=== PATIENT | male | born 1965 | race Caucasian/White ===

== ENCOUNTER 2023-06-25 14:14 | Observation (INO) ==
[2023-06-25] MEDS ORDERED: SODIUM CHLORIDE 0.9% 1000ML 1,000 ML IV ONE (14:35)
--- NOTE | 2023-06-25 14:35 | ED Triage Note ---
Date of Service June 25, 2023 History of Present Illness This patient was briefly evaluated while in triage. An abbreviated physical exam was performed. This patient is a 57-year-old Male who presents to the ED for evaluation of "so I got an infected tooth. I couldn't get ahold of anybody so here I am." Pt. states he was at Urgent Care yesterday. Rx PCN x10 days. Pt. was seen by dentist today for "emergency root canal". Had I&D, root canal, and was doing okay. Got home this afternoon and was having increasing pain. States took an ibuprofen, was having body shaking. Called dentist and referred to the ED for further evaluation. Pt. states shaking resolved upon arrival to the ED. Physical Exam VITALS: Vitals are noted on the nurse's note and reviewed by myself. GENERAL: This is a 57 year old male, in no acute distress, nondiaphoretic, well-developed well-nourished. SKIN: Left sided facial swelling. HEAD: Normocephalic atraumatic. EYES: Conjunctivae without injection, sclerae without icterus. NECK: No JVD. LUNGS: No retractions or accessory muscle use. MUSCULOSKELETAL: Normal gait. NEURO: Patient was alert and oriented to person place and time. No focal neurological deficits. Initial orders for labs and / or imaging were placed and patient was placed in the waiting area until a bed is available. Please see further documentation for the full ED course. MDM / Impression Impression Impression: Dental infection
[2023-06-25] MEDS ORDERED: ACETAMINOPHEN 500 MG TAB PO STA (14:36)
[2023-06-25 16:00] LABS: Hematocrit (blood only) 39.5 % (42.0-52.0); Hemoglobin 13.8 g/dl (14.0-18.0); Mean Corpuscular Hemoglobin 31.6 pg (25.0-34.0); Mean Corpuscular Hgb Conc 34.9 g/dL (32.0-36.0); Mean Corpuscular Volume 90.4 fL (80.0-100.0); Platelet Count 176 K/uL (130-400); RDW Coefficient of Variation 11.9 % (11.5-14.5); RDW Standard Deviation 39.8 fL (36.4-46.3); Red Blood Count 4.37 M/uL (4.70-6.10); White Blood Count 13.01 K/ul (4.8-10.8)
[2023-06-25 16:23] LABS: Albumin Globulin Ratio 1.3 (0.9-2); Albumin Level 4.2 gm/dl (3.4-5.0); BUN Creatinine Ratio 13.3 (10-20); Basophils # (auto) 0.04 K/uL (0.00-0.20); Basophils % (auto) 0.3 %; Bilirubin,Total 0.7 mg/dl (0.2-1.0); C Reactive Protein 8.44 mg/dl (0-0.5); Calcium 9.2 mg/dl (8.6-10.3); Creatinine Clr Calc Pharmacy 95.8 ml/min; Est GFR (Non-African American) 95.8 ml/min; Globulin 3.3 gm/dl (2.5-4.0); Immature Granulocytes # (auto) 0.05 K/uL (0.01-0.20); Immature Granulocytes % (auto) 0.4 %; Lymphocytes # (auto) 0.31 K/uL (1.20-3.40); Lymphocytes % (auto) 2.4 %; Monocytes # (auto) 0.53 K/uL (0.11-0.59); Monocytes % (auto) 4.1 %; Neutrophils # (auto) 12.08 K/uL (1.40-6.50); Neutrophils % (auto) 92.8 %; Potassium 3.6 mmol/L (3.5-5.1); Total Protein 7.5 gm/dl (6.0-8.3)
[2023-06-25 16:30] LABS: INR 1.1 (0.9-1.1); Partial Thromboplastin Ratio 0.8; Partial Thromboplastin Time 23.9 Seconds (21.0-31.0); Prothrombin Time 11.9 Seconds (9.0-12.0)
[2023-06-25] MEDS ORDERED: OPTIRAY 320 100ml IV ONE (17:15)
[2023-06-25] MEDS ORDERED: ACETAMINOPHEN 500 MG TAB ONE (17:22)
--- NOTE | 2023-06-25 17:41 | CT Scan Report ---
CT soft tissue neck w con CLINICAL HISTORY: Left facial swelling Technique: Axial CT images of the soft tissues of the neck were obtained following intravenous admini stration of 100 cc of Omnipaque 300. Automated dose lowering techniques and/or adjustment according t o patient size were utilized for this exam. Comparison: Soft tissue swelling and subcutaneous emphysema is seen in the left perimandibular soft t issues. Findings: Soft tissue swelling and subcutaneous emphysema are seen in the left mandibular greater than maxillar y soft tissues. The oropharynx, hypopharynx, larynx, and trachea are patent. Subcentimeter left subma ndibular and cervical nodes are seen. The parotid glands, submandibular glands, and thyroid gland are unremarkable. Imaged portions of the brain parenchyma are unremarkable. The paranasal sinuses and mastoid air cell s are normal in appearance. Impression: Soft tissue swelling and subcutaneous emphysema are seen about the left mandible concerning for infec tious process such as developing abscess. No definite underlying bony erosion is seen. ACT 112: Negative or not required by law. Electronically signed by: John Rivera M.D. 06/25/2023 5:39 PM
[2023-06-25] MEDS ORDERED: AMPICILLIN/SULBACTAM SOD 3,000 MG in 0.9 % SODIUM CHLORIDE 100 ML IV STA (18:50)
--- NOTE | 2023-06-25 20:03 | History & Physical Report ---
Date of Service June 25, 2023 Assessment & Plan (1) Dental infection: Plan: 57 yr old male with evidence of dental infection started on iv unasyn . Plan is to provide 24 hours of antibiotics and once improvement seen transition to po antibioitcs Vitals as protocol ACtivity as tolerated Diet soft diet no need for dvt prophylaxis Liquid diet and upgrade to soft diet as tolerated oral maxilofacial surgery consult Patient is a full code. History of Present Illness Chief Complaint: severe left tooth infection with swelling and pain Primary Care Provider: NO PCP 57 year old male with no past medical hx came in for severe left tooth pain and swelling . He had a recent root canal and developed pain secondary to that . he was started on antibiotics and had to see another dentist today and had root canal repair done today. Post proceedure he felt severe pain and swelling in the left jaw and because the pain was excruciating , he came to the er for evaluation . In the er he was evaluated and started on iv antibiotics . at time of evaluation his pain had marginally improved. Allergies Allergy/AdvReac Type Severity Reaction Status Date / Time No Known Allergies Allergy Unverified 10/20/14 11:37 Home Medications Medication Instructions Recorded Confirmed Type No Known Home Medications 06/25/23 06/25/23 History Past Med/Surg History Social History Smoking Status: Never smoker Feels Safe at Home: Yes Review of Systems Review of Systems: Reviewed all systems as noted in H/P , rest reviewed as negative Physical Exam Physical Exam: HEENT:No JVD ,left tooth pain and swelling + CV: S1/S2+ , no murmurs Resp: Air entry present bilaterally.no crackles, no wheeze . GI: Abdomen soft non tender . Musculoskeletal: examined for joint tenderness. Skin: no rashes Psych: Normal affect Neuro: Patient is awake alert not in distress , No focal neuro deficits noted Ext: no edema. Results & Data Results & Data Vital Signs (Past 12 Hours) Vital Signs Temp Pulse Pulse Resp BP BP Pulse Ox 06/25/23 19:00 69 18 120/82 98 06/25/23 17:07 06/25/23 17:07 99 H 18 127/73 97 06/25/23 14:33 38.5 C H 119 H 20 131/76 95 O2 Del Method 06/25/23 19:00 Room Air 06/25/23 17:07 Room Air 06/25/23 17:07 Room Air 06/25/23 14:33 Room Air Laboratory Results Abnormal Labs 06/25/23 06/25/23 15:39 15:39 WBC 13.01 H RBC 4.37 L Hgb 13.8 L Hct 39.5 L MPV 9.0 L Neut # (Auto) 12.08 H Lymph # (Auto) 0.31 L Glucose 104 H C-Reactive Protein 8.44 H Diagnostic Findings Laboratory Results WBC 13.01 K/ul (4.8-10.8) H 06/25/23 15:39 RBC 4.37 M/uL (4.70-6.10) L 06/25/23 15:39 Hgb 13.8 g/dl (14.0-18.0) L 06/25/23 15:39 Hct 39.5 % (42.0-52.0) L 06/25/23 15:39 MCV 90.4 fL (80.0-100.0) 06/25/23 15:39 MCH 31.6 pg (25.0-34.0) 06/25/23 15:39 MCHC 34.9 g/dL (32.0-36.0) 06/25/23 15:39 RDW Std Deviation 39.8 fL (36.4-46.3) 06/25/23 15:39 RDW Coeff of Aryan 11.9 % (11.5-14.5) 06/25/23 15:39 Plt Count 176 K/uL (130-400) 06/25/23 15:39 MPV 9.0 fL (9.4-12.4) L 06/25/23 15:39 Immature Gran % (Auto) 0.4 % 06/25/23 15:39 Neut % (Auto) 92.8 % 06/25/23 15:39 Lymph % (Auto) 2.4 % 06/25/23 15:39 Whitfield % (Auto) 4.1 % 06/25/23 15:39 Eos % (Auto) 0.0 % 06/25/23 15:39 Baso % (Auto) 0.3 % 06/25/23 15:39 Neut # (Auto) 12.08 K/uL (1.40-6.50) H 06/25/23 15:39 Lymph # (Auto) 0.31 K/uL (1.20-3.40) L 06/25/23 15:39 Whitfield # (Auto) 0.53 K/uL (0.11-0.59) 06/25/23 15:39 Eos # (Auto) 0.00 K/uL (0.00-0.50) 06/25/23 15:39 Baso # (Auto) 0.04 K/uL (0.00-0.20) 06/25/23 15:39 Immature Gran # (Auto) 0.05 K/uL (0.01-0.20) 06/25/23 15:39 PT 11.9 Seconds (9.0-12.0) 06/25/23 15:39 INR 1.1 (0.9-1.1) 06/25/23 15:39 APTT 23.9 Seconds (21.0-31.0) 06/25/23 15:39 PTT Ratio 0.8 06/25/23 15:39 Sodium 137 mmol/L (136-145) 06/25/23 15:39 Potassium 3.6 mmol/L (3.5-5.1) 06/25/23 15:39 Chloride 102 mmol/L (98-107) 06/25/23 15:39 Carbon Dioxide 26 mmol/L (21-32) 06/25/23 15:39 Anion Gap 9 (3-11) 06/25/23 15:39 BUN 12 mg/dl (6-23) 06/25/23 15:39 Creatinine 0.90 mg/dl (0.6-1.4) 06/25/23 15:39 Est Cr Clr Drug Dosing 95.8 ml/min 06/25/23 15:39 Est GFR ( Amer) 111.0 ml/min 06/25/23 15:39 Est GFR (Non-Af Amer) 95.8 ml/min 06/25/23 15:39 BUN/Creatinine Ratio 13.3 (10-20) 06/25/23 15:39 Glucose 104 mg/dl (70-99(Fasting)) H 06/25/23 15:39 Lactate 1.1 mmol/L (0.4-2.0) 06/25/23 15:39 Calcium 9.2 mg/dl (8.6-10.3) 06/25/23 15:39 Total Bilirubin 0.7 mg/dl (0.2-1.0) 06/25/23 15:39 AST 25 U/L (13-39) 06/25/23 15:39 ALT 18 U/L (7-52) 06/25/23 15:39 Alkaline Phosphatase 57 U/L (34-104) 06/25/23 15:39 C-Reactive Protein 8.44 mg/dl (0-0.5) H 06/25/23 15:39 Total Protein 7.5 gm/dl (6.0-8.3) 06/25/23 15:39 Albumin 4.2 gm/dl (3.4-5.0) 06/25/23 15:39 Globulin 3.3 gm/dl (2.5-4.0) 06/25/23 15:39 Albumin/Globulin Ratio 1.3 (0.9-2) 06/25/23 15:39 Procalcitonin 0.30 ng/ml (0-0.5) 06/25/23 15:39 Impressions Soft Tissue Neck CT 06/25/23 14:35 CT soft tissue neck w con CLINICAL HISTORY: Left facial swelling Technique: Axial CT images of the soft tissues of the neck were obtained following intravenous administration of 100 cc of Omnipaque 300. Automated dose lowering techniques and/or adjustment according to patient size were utilized for this exam. Comparison: Soft tissue swelling and subcutaneous emphysema is seen in the left perimandibular soft tissues. Findings: Soft tissue swelling and subcutaneous emphysema are seen in the left mandibular greater than maxillary soft tissues. The oropharynx, hypopharynx, larynx, and trachea are patent. Subcentimeter left submandibular and cervical nodes are seen. The parotid glands, submandibular glands, and thyroid gland are unremarkable. Imaged portions of the brain parenchyma are unremarkable. The paranasal sinuses and mastoid air cells are normal in appearance. Impression: Soft tissue swelling and subcutaneous emphysema are seen about the left mandible concerning for infectious process such as developing abscess. No definite underlying bony erosion is seen. ACT 112: Negative or not required by law. Electronically signed by: John Rivera M.D. 06/25/2023 5:39 PM Code Status & VTE Plan Code Status patient is a full code
[2023-06-25] MEDS ORDERED: ACETAMINOPHEN 325 MG TAB PO PRN (21:32)
[2023-06-25] MEDS ORDERED: oxyCODONE/ACETAMINOPHEN 5mg/325mg TAB PO PRN (21:32)
--- NOTE | 2023-06-25 21:34 | Oral/Maxillofacial Consult ---
Date of Consultation June 25, 2023 History of Present Illness Attending Physician: Donnell Patel MD History of Present Illness Oral Maxillofacial Surgery Exam DRAFT Present Complaint: this patient is a 57-year-old Male who presents to the ED for evaluation of "so I got an infected tooth. I couldn't get ahold of anybody so here I am." Pt. states he was at Urgent Care yesterday. Rx PCN x10 days. Pt. was seen by dentist today for "emergency root canal". Had I&D, root canal, and was doing okay. Got home this afternoon and was having increasing pain. States took an ibuprofen, w as having body shaking. Called dentist and referred to the ED for further evaluation. Pt. states shaking resolved upon arrival to the ED. Oral Exam: Had root canal # 20 as emergency--At present minima swelling, no pain and as per patient and his major improvement since admission last night. There is no pus to drain as the Root canal/ I&D by dentist and IV antibiotics has solved the current problem. Osbaldo can be discharged and stated on oral antibiotics Imaging: CLINICAL HISTORY: Left facial swelling Technique: Axial CT images of the soft tissues of the neck were obtained following intravenous administration of 100 cc of Omnipaque 300. Automated dose lowering techniques and/or adjustment according to patient size were utilized for this exam. Comparison: Soft tissue swelling and subcutaneous emphysema is seen in the left perimandibular soft tissues. Findings: Soft tissue swelling and subcutaneous emphysema are seen in the left mandibular greater than maxillary soft tissues. The oropharynx, hypopharynx, larynx, and trachea are patent. Subcentimeter left submandibular and cervical nodes are seen. The parotid glands, submandibular glands, and thyroid gland are unremarkable. Imaged portions of the brain parenchyma are unremarkable. The paranasal sinuses and mastoid air cells are normal in appearance. Impression: Soft tissue swelling and subcutaneous emphysema are seen about the left mandible concerning for infectious process such as developing abscess. No definite underlying bony erosion is seen. Head/Neck exam: Neck is supple, FROM, Able to extend and flex neck w/o difficulty, no masses, no abnormalities, no airway issues, no evidence of sleep apnea. No submandibular swelling, slight mucobuccal swelling which is very soft=edema, no pus present--resolving infection # 20 Understanding was expressed. Time was given for questions regarding the surgery, risks and post op care. Discussed alternative to treatment--procedure as planned, Do not do surgery The following teeth are decayed and fractured and removal is indicated ENDER: Plan I will have Osbaldo get his next IV dose of antibiotics and he can be discharged and followed by his dentist as set up . I will Rx Augmentin [phone] x 10 days He has my contact information if needed. OK for discharge today Allergies Allergy/AdvReac Type Severity Reaction Status Date / Time No Known Allergies Allergy Unverified 10/20/14 11:37 Home Medications Medication Instructions Recorded Confirmed Type No Known Home Medications 06/25/23 06/25/23 History Patient History Medical History No pertinent family history No pertinent past medical history Surgical History No pertinent past surgical history Social History Smoking Status: Never smoker Hx Alcohol Use: Yes Alcohol type: beer Hx Substance Use: No Preferred Language: Kyr[place] Communication Ability: Effective Channel Opener Required: No Beliefs That Will Affect Care: None Current Living Situation: Family Other Information That Helps Us Care for You: No Feels Safe at Home: Yes Safety Concerns: Feels Safe At This Time Assistive Devices: None Results & Data Vital Signs (Past 12 Hours) Vital Signs Temp Pulse Pulse Resp BP BP Pulse Ox 06/25/23 19:00 69 18 120/82 98 06/25/23 17:07 06/25/23 17:07 99 H 18 127/73 97 06/25/23 14:33 38.5 C H 119 H 20 131/76 95 O2 Del Method 06/25/23 19:00 Room Air 06/25/23 17:07 Room Air 06/25/23 17:07 Room Air 06/25/23 14:33 Room Air PG Care Time/CCT Total # of Minutes Spent Total Time Spent with Patient: Total time spent is greater than 50% in coordination of care (as documented) at patient's floor/unit and/or counseling patient: Coding Level of Care Code 81505 IN/OBS CONSULT LVL 2,35M Diagnoses
--- NOTE | 2023-06-25 23:55 | Emergency Department Note ---
History of Present Illness General Chief complaint: Illness Stated complaint: WAS SHAKING UNCONTROLABLY Time Seen by Provider: 06/25/23 17:10 History of Present Illness Provider complaint: tooth pain Teeth map: 1. Onset (ago): hour(s) 5 Duration: constant Severity: moderate Maximum Pain Intensity: 6 Current Pain Intensity: 6 Context: + history of dental caries and + poor dental care Associated symptoms: + fever Patient reports that he had a root canal today on his lower molars and then began having fever and swelling hours after. He states his root canal was done by Dr. Aguirre and states that Dr. Patel drained an abscess 2. Home Medications Medication Instructions Recorded Confirmed Type No Known Home Medications 06/25/23 06/25/23 History Allergies Allergy/AdvReac Type Severity Reaction Status Date / Time No Known Allergies Allergy Unverified 10/20/14 11:37 Past Med/Surg History Medical History No pertinent family history No pertinent past medical history Surgical History No pertinent past surgical history Social History Smoking Status: Never smoker Hx Alcohol Use: Yes Alcohol type: beer Hx Substance Use: No Preferred Language: Upper Sorbian Communication Ability: Effective Ambulance Paramedic Required: No Beliefs That Will Affect Care: None Current Living Situation: Family Other Information That Helps Us Care for You: No Feels Safe at Home: Yes Safety Concerns: Feels Safe At This Time Assistive Devices: None Physical Exam Vital Signs Vital Signs - 24 hr 06/25/23 14:33 06/25/23 17:07 06/25/23 17:07 Temperature 38.5 C H Temperature Source Skin Pulse Rate 119 H Pulse Rate [Right Finger] 99 H Pulse Rhythm [Right Finger] Regular Pulse Strength [Right Finger] Normal Respiratory Rate 20 18 Respiratory Effort / Characteristics Non-Labored Respiratory Depth Normal Respiratory Pattern Regular Blood Pressure 131/76 Blood Pressure [Right Arm] 127/73 Blood Pressure Mean 94 Blood Pressure Mean [Right Arm] 91 Blood Pressure Position [Right Arm] Lying Pulse Oximetry 95 97 Oxygen Delivery Method Room Air Room Air Room Air Sepsis Recent Fever Within 48 Hours No Sepsis New/Unexplained Change in Mental Status No Sepsis Action Taken by Nursing Physician Notified 06/25/23 19:00 Temperature Temperature Source Pulse Rate Pulse Rate [Right Finger] 69 Pulse Rhythm [Right Finger] Pulse Strength [Right Finger] Respiratory Rate 18 Respiratory Effort / Characteristics Respiratory Depth Normal Respiratory Pattern Blood Pressure Blood Pressure [Right Arm] 120/82 Blood Pressure Mean Blood Pressure Mean [Right Arm] 94 Blood Pressure Position [Right Arm] Pulse Oximetry 98 Oxygen Delivery Method Room Air Sepsis Recent Fever Within 48 Hours Sepsis New/Unexplained Change in Mental Status Sepsis Action Taken by Nursing Physical Exam HENT: Exam performed. - Right Ear: External ear normal. No mastoid erythema - Left Ear: External ear normal. No mastoid erythema - Mouth/Throat: The oropharynx is clear and moist. No trismus in the jaw. Multiple dental caries. Swelling over the left lower mandible. No tongue elevation. No symptoms mental tenderness or edema. EYES: Conjunctivae and EOM are normal. Pupils are equal, round, and reactive to light. Right eye exhibits no discharge. Left eye exhibits no discharge. No scleral icterus. NECK: Normal range of motion. Neck supple. No JVD present. No spinous process tenderness present. No rigidity. No tracheal deviation and normal range of motion present. CV: Normal rate, regular rhythm, normal heart sounds and intact distal pulses. There is no peripheral edema. Palpable radial pulses bue. PULM/CHEST: Effort normal and breath sounds normal. No respiratory distress. No stridor. He has no wheezes. He has no rales. LYMPH: No cervical adenopathy. NEURO: Motor and sensation grossly intact SKIN: Skin is warm and dry. He is not diaphoretic. PSYCH: He has a normal mood and affect. Behavior is normal. Judgment and thought content normal. Course Course 171: The patient was evaluated in room B5. A complete history and physical exam was performed Cardiac monitoring: An order was placed for continuous cardiac monitoring. The monitor shows a rate of 70 with sinus rhythm interpreted by me 1900: Vital signs stable. Labs show mild leukocytosis of 13. Imaging shows soft tissue swelling and subcutaneous emphysema concerning for an infectious process such as a developing abscess. There is no definitive bony erosion. Discussed case with oral maxillofacial surgery Dr. Sellers. Given the patient's leukocytosis tachycardia and fever the patient will be admitted for IV antibiotics. We will hold steroids at this time. [facility] hospitalist team will be made aware and admit the patient. Administered Medications Discontinued Medications Acetaminophen (Acetaminophen 500 Mg Tab) 1,000 mg PO NOW STA Stop: 06/25/23 14:37 Last Admin: 06/25/23 17:24 Dose: 1,000 mg Documented By: KRISSY Acetaminophen (Acetaminophen 500 Mg Tab) Confirm Administered Dose 1,000 mg .ROUTE .STK-MED ONE Stop: 06/25/23 17:23 Last Admin: 06/25/23 17:24 Dose: Not Given Documented By: KRISSY Sodium Chloride (Nss 1000ml) 1,000 mls @ 999 mls/hr IV .Q1H1M ONE Stop: 06/25/23 15:35 Last Infusion: 06/25/23 21:48 Dose: 0 mls/hr Documented By: Admin: 06/25/23 19:28 Dose: 999 mls/hr Documented By: JACKSON Ampicillin Sodium/Sulbactam Sodium 3,000 mg/ Sodium Chloride 108 mls @ 200 mls/hr IV NOW STA; Protocol Stop: 06/25/23 19:22 Last Infusion: 06/25/23 20:50 Dose: 0 mls/hr Documented By: Admin: 06/25/23 19:28 Dose: 200 mls/hr Documented By: JACKSON Ioversol (Optiray 320 100ml) 90 ml IV ONCE ONE Stop: 06/25/23 17:16 Last Admin: 06/25/23 17:16 Dose: 90 ml Documented By: CAILN Medical Decision Making Laboratory Data Attestation: I reviewed the patient's lab results. 06/25/23 15:39 06/25/23 15:39 Lab Results 06/25/23 06/25/23 06/25/23 Range/Units 15:39 15:39 15:39 WBC 13.01 H (4.8-10.8) K/ul RBC 4.37 L (4.70-6.10) M/uL Hgb 13.8 L (14.0-18.0) g/dl Hct 39.5 L (42.0-52.0) % MCV 90.4 (80.0-100.0) fL MCH 31.6 (25.0-34.0) pg MCHC 34.9 (32.0-36.0) g/dL RDW Std Deviation 39.8 (36.4-46.3) fL RDW Coeff of Aryan 11.9 (11.5-14.5) % Plt Count 176 (130-400) K/uL MPV 9.0 L (9.4-12.4) fL Immature Gran % (Auto) 0.4 % Neut % (Auto) 92.8 % Lymph % (Auto) 2.4 % [place] % (Auto) 4.1 % Eos % (Auto) 0.0 % Baso % (Auto) 0.3 % Neut # (Auto) 12.08 H (1.40-6.50) K/uL Lymph # (Auto) 0.31 L (1.20-3.40) K/uL [place] # (Auto) 0.53 (0.11-0.59) K/uL Eos # (Auto) 0.00 (0.00-0.50) K/uL Baso # (Auto) 0.04 (0.00-0.20) K/uL Immature Gran # (Auto) 0.05 (0.01-0.20) K/uL PT 11.9 (9.0-12.0) Seconds INR 1.1 (0.9-1.1) APTT 23.9 (21.0-31.0) Seconds PTT Ratio 0.8 Sodium (136-145) mmol/L Potassium (3.5-5.1) mmol/L Chloride (98-107) mmol/L Carbon Dioxide (21-32) mmol/L Anion Gap (3-11) BUN (6-23) mg/dl Creatinine (0.6-1.4) mg/dl Est Cr Clr Drug Dosing ml/min Est GFR ( Amer) ml/min Est GFR (Non-Af Amer) ml/min BUN/Creatinine Ratio (10-20) Glucose (70-99(Fasting)) mg/dl Lactate 1.1 (0.4-2.0) mmol/L Calcium (8.6-10.3) mg/dl Total Bilirubin (0.2-1.0) mg/dl AST (13-39) U/L ALT (7-52) U/L Alkaline Phosphatase (34-104) U/L C-Reactive Protein (0-0.5) mg/dl Total Protein (6.0-8.3) gm/dl Albumin (3.4-5.0) gm/dl Globulin (2.5-4.0) gm/dl Albumin/Globulin Ratio (0.9-2) Procalcitonin (0-0.5) ng/ml 06/25/23 06/25/23 Range/Units 15:39 15:39 WBC (4.8-10.8) K/ul RBC (4.70-6.10) M/uL Hgb (14.0-18.0) g/dl Hct (42.0-52.0) % MCV (80.0-100.0) fL MCH (25.0-34.0) pg MCHC (32.0-36.0) g/dL RDW Std Deviation (36.4-46.3) fL RDW Coeff of Aryan (11.5-14.5) % Plt Count (130-400) K/uL MPV (9.4-12.4) fL Immature Gran % (Auto) % Neut % (Auto) % Lymph % (Auto) % [place] % (Auto) % Eos % (Auto) % Baso % (Auto) % Neut # (Auto) (1.40-6.50) K/uL Lymph # (Auto) (1.20-3.40) K/uL [place] # (Auto) (0.11-0.59) K/uL Eos # (Auto) (0.00-0.50) K/uL Baso # (Auto) (0.00-0.20) K/uL Immature Gran # (Auto) (0.01-0.20) K/uL PT (9.0-12.0) Seconds INR (0.9-1.1) APTT (21.0-31.0) Seconds PTT Ratio Sodium 137 (136-145) mmol/L Potassium 3.6 (3.5-5.1) mmol/L Chloride 102 (98-107) mmol/L Carbon Dioxide 26 (21-32) mmol/L Anion Gap 9 (3-11) BUN 12 (6-23) mg/dl Creatinine 0.90 (0.6-1.4) mg/dl Est Cr Clr Drug Dosing 95.8 ml/min Est GFR ( Amer) 111.0 ml/min Est GFR (Non-Af Amer) 95.8 ml/min BUN/Creatinine Ratio 13.3 (10-20) Glucose 104 H (70-99(Fasting)) mg/dl Lactate (0.4-2.0) mmol/L Calcium 9.2 (8.6-10.3) mg/dl Total Bilirubin 0.7 (0.2-1.0) mg/dl AST 25 (13-39) U/L ALT 18 (7-52) U/L Alkaline Phosphatase 57 (34-104) U/L C-Reactive Protein 8.44 H (0-0.5) mg/dl Total Protein 7.5 (6.0-8.3) gm/dl Albumin 4.2 (3.4-5.0) gm/dl Globulin 3.3 (2.5-4.0) gm/dl Albumin/Globulin Ratio 1.3 (0.9-2) Procalcitonin 0.30 (0-0.5) ng/ml Imaging Data Radiologist's Impression: Soft Tissue Neck CT 06/25/23 14:35 CT soft tissue neck w con CLINICAL HISTORY: Left facial swelling Technique: Axial CT images of the soft tissues of the neck were obtained following intravenous administration of 100 cc of Omnipaque 300. Automated dose lowering techniques and/or adjustment according to patient size were utilized for this exam. Comparison: Soft tissue swelling and subcutaneous emphysema is seen in the left perimandibular soft tissues. Findings: Soft tissue swelling and subcutaneous emphysema are seen in the left mandibular greater than maxillary soft tissues. The oropharynx, hypopharynx, larynx, and trachea are patent. Subcentimeter left submandibular and cervical nodes are seen. The parotid glands, submandibular glands, and thyroid gland are unremarkable. Imaged portions of the brain parenchyma are unremarkable. The paranasal sinuses and mastoid air cells are normal in appearance. Impression: Soft tissue swelling and subcutaneous emphysema are seen about the left mandible concerning for infectious process such as developing abscess. No definite underlying bony erosion is seen. ACT 112: Negative or not required by law. Electronically signed by: John Rivera M.D. 06/25/2023 5:39 PM [facility] Narrative 1710: The patient was evaluated in room B5. A complete history and physical exam was performed Cardiac monitoring: An order was placed for continuous cardiac monitoring. The monitor shows a rate of 70 with sinus rhythm interpreted by me 1900: Vital signs stable. Labs show mild leukocytosis of 13. Imaging shows soft tissue swelling and subcutaneous emphysema concerning for an infectious process such as a developing abscess. There is no definitive bony erosion. Discussed case with oral maxillofacial surgery Dr. Sellers. Given the patient's leukocytosis tachycardia and fever the patient will be admitted for IV antibiotics. We will hold steroids at this time. [facility] Hospitalist team will be made aware and admit the patient. Impression & Plan Dental infection Discharge Plan Visit Data Chief Complaint: Illness Stated Complaint: WAS SHAKING UNCONTROLABLY ED Provider: Donnell Mcdaniels Discharge Problem: Dental infection Patient Disposition: Admitted As Inpatient Discharge Instructions Interventions: ED Discharge Assessment Last Done: 06/25/23 21:20
[2023-06-26] MEDS: AMPICILLIN/SULBACTAM SOD 3,000 MG in 0.9 % SODIUM CHLORIDE 100 ML IV SCH ×3 (02:10→13:01)
[2023-06-26 08:03] LABS: Hematocrit (blood only) 37.8 % (42.0-52.0); Hemoglobin 12.9 g/dl (14.0-18.0); Mean Corpuscular Hemoglobin 31.2 pg (25.0-34.0); Mean Corpuscular Hgb Conc 34.1 g/dL (32.0-36.0); Mean Corpuscular Volume 91.5 fL (80.0-100.0); Mean Platelet Volume 9.2 fL (9.4-12.4); Platelet Count 161 K/uL (130-400); RDW Coefficient of Variation 12.3 % (11.5-14.5); RDW Standard Deviation 41.2 fL (36.4-46.3); Red Blood Count 4.13 M/uL (4.70-6.10); White Blood Count 6.98 K/ul (4.8-10.8)
[2023-06-26 08:16] LABS: Calcium 8.8 mg/dl (8.6-10.3); Creatinine Clr Calc Pharmacy 94.7 ml/min; Est GFR (African American) 109.6 ml/min; Est GFR (Non-African American) 94.5 ml/min
--- NOTE | 2023-06-26 14:28 | Discharge Summary ---
Date of Service June 26, 2023 Admission HPI Per Admitting Provider 57 year old male with no past medical hx came in for severe left tooth pain and swelling . He had a recent root canal and developed pain secondary to that . he was started on antibiotics and had to see another dentist today and had root canal repair done today. Post proceedure he felt severe pain and swelling in the left jaw and because the pain was excruciating , he came to the er for evaluation . In the er he was evaluated and started on iv antibiotics . at time of evaluation his pain had marginally improved. Admission Exam Per Admitting Provider HEENT:No JVD ,left tooth pain and swelling + CV: S1/S2+ , no murmurs Resp: Air entry present bilaterally.no crackles, no wheeze . GI: Abdomen soft non tender . Musculoskeletal: examined for joint tenderness. Skin: no rashes Psych: Normal affect Neuro: Patient is awake alert not in distress , No focal neuro deficits noted Ext: no edema. Principal Diagnosis Dental infection Discharge Exam Constitutional: WD/WN, vitals as above, NAD, sitting up in bed, pleasant, conversing easily ENMT: swelling present on left cheek; slightly tender on palpation Respiratory: normal respiratory effort, lungs clear to auscultation, no wheeze, rales, rhonchi. Normal insp/exp effort, no accessory muscle use Cardiovascular: RRR, no murmur, no edema Vessels: no JVD or carotid bruit Chest: normal inspection of chest Abdomen: normal bowel sounds, soft, nontender, no hepatosplenomegaly Musculoskeletal: no cyanosis or clubbing, extremities motor strength 5/5 Skin: no rashes, warm and dry normal turgor Neurologic: PERRL, EOMI, accommodation nl, no face palsy, no dysarthria CN's II- XI intact bilaterally and moves all extremities Psychiatric: A+Ox3, euthymic affect Discharge Data Allergies Allergy/AdvReac Type Severity Reaction Status Date / Time acetylcysteine Allergy Severe severe Unverified 06/26/23 12:59 [From Mucomyst] swelling Consultations 06/25/23 19:01 Consult Oromaxillofacial Surgery Routine 06/25/23 19:02 ED Decision to Admit Stat Ordered Studies 06/25/23 14:35 CT soft tissue neck w con Stat Hospital Course (1) Dental infection: Plan Patient is a 57-year-old male with no past medical history presented with severe tooth pain and swelling. He had undergone root canal repair on the day of the presentation to the ED. Following the procedure, he had severe pain and swelling of left jaw. CT soft tissue neck showed swelling and subcutaneous emphysema in the left mandible concerning for infectious process such as abscess. Patient was admitted to medical floor and was started on IV Unasyn. Oral surgery was consulted for comanagement. Patient was evaluated by oral surgery; recommended oral antibiotics and follow- up with his dentist. He was prescribed 10 days of Augmentin by oral surgery. Total Time Total Time Spent Total Time Spent (In Minutes): 35 Total Time Includes: Examination of the Patient, Discharge Planning, Medication Reconciliation, Communication With Other Providers and Other Discharge Plan Discharge Items Patient Disposition: Home - Self-Care Reason For Visit: DENTAL INFECTION Discharge Diagnosis: dento-facial infection left side Condition on Discharge: Good Activity: Resume your previous activity Lifting: Gradually increase as tolerated Bathing: No limitations Driving/Machine Use: Resume 1 day after discharge Weightbearing: Full weightbearing Non-emergency contact: Surgeon Call non-emergency contact if: your temperature is above 101, your wound has increased redness, your wound has increased drainage and your wound pain has increased Follow-up/Referrals: Reji Sellers, JERRICA [Physician] - PCP,NO [Primary Care Provider] - Diet: Regular Addtl Attending Provider Instructions: ADDITIONAL ACTIVITY RECOMMENDATIONS: * [place] teeth after every meal. It is very important to keep your mouth clean to prevent infection. * Starting tonight rinse with the Peridex as directed then 2 x a day * it is very important to keep well hydrated, this prevents fever * follow up with your dentist to insure the root canal is healing well SPECIAL CARE INSTRUCTIONS: *It is not uncommon that between day 2-4 that your swelling will be at its worst this is very normal, do not be alarmed. * Apply heat (hot water bottle or heating pad) for the next two days, as often as possible. * Tomorrow start rinsing your mouth with 1/2 teaspoon salt in 8 ounces warm water. This rinse should be used every 4-6 hours. * Some swelling is common. It should gradually decrease within 4-5 days. Pending Studies at Discharge: No Stand-Alone Forms: [facility], Smoking Cessation Medications and DC Order Prescriptions: Continued amoxicillin-pot clavulanate 875-125 mg tablet 1 tab PO Q12H Qty: 20 0RF chlorhexidine gluconate [Peridex] 0.12 % mouthwash 15 ml mucous membrane BID MDD oral infection Qty: 473 0RF Rx Instructions: use for 3-4 days as directed Discontinued penicillin V potassium 500 mg Tablet 500 mg PO TID Rx Instructions: Start Date 06/24/23 End Date 07/04/23 Discharge Orders: Discharge Order (Routine); Ordered 06/26/23 Ordered By: Reji Daniels/Other Patient Handouts: ED Dental Abscess, Dental Abscess Facial Cellulitis Admission Data Admit Date/Time: 06/25/23 19:27 Attending Provider: Freedom Addison Admit Provider: Donnell Patel Primary Care Provider: PCP,NO Other Providers: Reji Sellers ; Donnell Patel ; Kimberly Schroeder Other Interventions: Discharge Summary Assessment (RN) Last Done: 06/26/23 13:50
== END 2023-06-26 14:17 | disposition home or self-care (01) ==
LOC: ED 14:14 → 3N 14:14 → SUATTDRO 19:27 → 3N 21:20